=== PATIENT | female | born 1965 | race African-American/Black ===

== ENCOUNTER 2020-02-01 00:56 | Emergency (ER) | payer MEDICAID ==
[~2020-02-01] VITALS: Ht 167.6 cm; Wt 94.7 kg
--- NOTE | 2020-02-01 01:28 | NUR ---
BENITO RN: 54 Y/O FEMALE BIB [facility] FOR CHEST PAIN. PT STATES THIS STARTED YESTERDAY WHEN "I WAS HAVING AN ARGUMENT WITH MY ROOM MATE". PT STATES THE PAIN WAS LEFT SIDED, NON RADIATING AND INTERMITTENT. REPORTS "SEEING SPOTS AND FEELING DIZZY". NO SOB, NAUSEA, VOMITING. PT ALSO REPORTS "I DID METH A FEW DAYS AGO, BUT I'M DONE WITH THAT SHIT FOR GOOD". PT UNABLE TO SIT STILL, CONSTANTLY MOVING. PT BECAME UNEASY WITH THE IV, STATING "I'M SCARED OF NEEDLES, I DON'T LIKE THEM AT ALL". LABS DRAWN. PT REFUSING IV AT THIS TIME. PT MADE AWARE OF THE NEED FOR URINE SAMPLE. ALL MONITORING EQUIPMENT APPLIED. NORMAL SINUS RHYTHM ON THE MONITOR, NO ECTOPY OR ST CHANGES PRESENT. BLANKET PROVIDED. AWAITING TESTING TO BE COMPLETE. WILL CONTINUE TO MONITOR.
[2020-02-01] MEDS ORDERED: SODIUM CHLORIDE FLUSH 10ML SYR IVF ONE (01:30)
[2020-02-01 01:37] LABS: ALANINE AMINOTRANSFERASE 27 U/L (12-78); ALBUMIN 3.6 g/dL (3.4-5.0); ANION GAP 4 mmol/L (5-15); CALCIUM 8.6 mg/dL (8.5-10.1); CHLORIDE 110 mmol/L (98-107); CREATININE 0.88 mg/dL (0.55-1.02)
[2020-02-01 01:42] LABS: ALKALINE PHOSPHATASE 71 U/L (45-117); BILIRUBIN,TOTAL 0.4 mg/dL (0.2-1.0); TOTAL PROTEIN 7.2 g/dL (6.4-8.2); TROPONIN I < 0.015 ng/mL (0.000-0.045)
[2020-02-01 01:50] LABS: BASOPHILS # (AUTO) 0.03 x10^3/uL (0-0.1); BASOPHILS % (AUTO) 1 % (0-1); EOSINOPHILS % (AUTO) 1 % (1-7); LYMPHOCYTES # (AUTO) 3.11 x10^3/uL (1-3.4); LYMPHOCYTES % (AUTO) 42 % (22-44); MD NO; MEAN CORPUSCULAR HEMOGLOBIN 30.3 pg (27.0-34.8); MEAN CORPUSCULAR HGB CONC 33.8 g/dL (32.4-35.8); MEAN CORPUSCULAR VOLUME 89.5 fL (80-100); MEAN PLATELET VOLUME 7.2 fL (7.4-10.4); MONOCYTES # (AUTO) 0.41 x10^3/uL (0.2-0.8); MONOCYTES % (AUTO) 6 % (2-9); NEUTROPHILS # (AUTO) 3.71 x10^3/uL (1.8-6.8); NEUTROPHILS % (AUTO) 50 % (42-75); PLATELET COUNT 308 x10^3/uL (130-400); RED BLOOD COUNT 4.43 x10^6/uL (3.82-5.3); RED CELL DISTRIBUTION WIDTH 15.4 % (9.6-15.2)
[2020-02-01] MEDS ORDERED: KETOROLAC 30 MG/1 ML IM ONE (02:00)
[2020-02-01] MEDS ORDERED: ASPIRIN 81 MG TABLET CHEW PO ONE (02:00)
[2020-02-01] MEDS ORDERED: ASPIRIN 81 MG TABLET CHEW ONE (02:33)
[2020-02-01] MEDS ORDERED: KETOROLAC 30 MG/1 ML ONE (02:33)
--- NOTE | 2020-02-01 03:16 | NUR ---
BREAK RN: PT ADAMANTLY REFUSING TO PROVIDE UA AT THIS TIME. PA MADE AWARE.
[2020-02-01 03:36] VITALS: BP 101/72
== END 2020-02-01 03:38 | disposition home or self-care (01) ==
LOC: ED 03:27
DX: R07.89 Other chest pain (principal); M54.9 Dorsalgia, unspecified; G89.29 Other chronic pain; F17.210 Nicotine dependence, cigarettes, uncomplicated
CPT/HCPCS: 36415; 71045; 80053; 80307; 84484; 85025; 93005; 96372; 99285; J1885

== ENCOUNTER 2020-06-24 06:12 | Emergency (ER) | payer MEDICAID ==
[~2020-06-24] VITALS: Ht 167.6 cm; Wt 90.0 kg
[2020-06-24] MEDS ORDERED: MAALOX/HYOSCYAMINE/LIDOCAINE 45 ML BTL PO ONE (06:30)
[2020-06-24] MEDS ORDERED: ONDANSETRON ODT 8 MG PO ONE (06:30)
[2020-06-24] MEDS ORDERED: FAMOTIDINE 20 MG TABLET PO ONE (06:30)
--- NOTE | 2020-06-24 06:36 | NUR ---
THIS PT WAS KEVIN TORREZ FROM HOME. STATES "I CALLED BECAUSE OF MY LEG PAIN, I CAN'T WALK," PER PT THIS HAS BEEN HAPPENING FOR 5 MONTHS. PER EMS PT WALKED DOWN 3 FLIGHTS OF STAIRS TO THE AMBULANCE. PT ABLE TO BEAR WEIGHT TO GET FROM GURNEY TO BED AND FROM BED TO COMMODE FOR UA. PT ALSO COMPLAINING OF LOWER ABD PAIN. NON DESCRIPT. DENIES N/V. PT CONNECTED TO BP AND O2 MONITORS. SIDE RAILS UP X2, CALL LIGHT IN REACH.
[2020-06-24 06:37] LABS: MICROSCOPIC NOT IND
[2020-06-24 06:51] LABS: BASOPHILS # (AUTO) 0.03 x10^3/uL (0-0.1); BASOPHILS % (AUTO) 0 % (0-1); EOSINOPHILS % (AUTO) 1 % (1-7); LYMPHOCYTES # (AUTO) 2.71 x10^3/uL (1-3.4); LYMPHOCYTES % (AUTO) 34 % (22-44); MD NO; MEAN CORPUSCULAR HEMOGLOBIN 29.4 pg (27.0-34.8); MEAN CORPUSCULAR HGB CONC 32.9 g/dL (32.4-35.8); MEAN CORPUSCULAR VOLUME 89.2 fL (80-100); MEAN PLATELET VOLUME 6.6 fL (7.4-10.4); MONOCYTES # (AUTO) 0.35 x10^3/uL (0.2-0.8); MONOCYTES % (AUTO) 5 % (2-9); NEUTROPHILS # (AUTO) 4.71 x10^3/uL (1.8-6.8); NEUTROPHILS % (AUTO) 60 % (42-75); PLATELET COUNT 360 x10^3/uL (130-400); RED BLOOD COUNT 4.15 x10^6/uL (3.82-5.3); RED CELL DISTRIBUTION WIDTH 14.7 % (9.6-15.2)
[2020-06-24 07:00] LABS: ALANINE AMINOTRANSFERASE 33 U/L (12-78); ALBUMIN 4.1 g/dL (3.4-5.0); ANION GAP 7 mmol/L (5-15); CALCIUM 8.9 mg/dL (8.5-10.1); CHLORIDE 105 mmol/L (98-107)
[2020-06-24 07:05] LABS: ALKALINE PHOSPHATASE 98 U/L (45-117); BILIRUBIN,TOTAL 1.4 mg/dL (0.2-1.0); TOTAL PROTEIN 7.9 g/dL (6.4-8.2)
[2020-06-24] MEDS ORDERED: FAMOTIDINE 20 MG TABLET ONE (07:05)
[2020-06-24] MEDS ORDERED: MAALOX/HYOSCYAMINE/LIDOCAINE 45 ML BTL ONE (07:05)
[2020-06-24] MEDS ORDERED: ONDANSETRON ODT 8 MG ONE (07:05)
--- NOTE | 2020-06-24 07:17 | NUR ---
pt going for rad tests at this time.
[2020-06-24 08:08] VITALS: BP 127/78
== END 2020-06-24 08:11 | disposition home or self-care (01) ==
LOC: ED 07:32
DX: S83.91XA Sprain of unspecified site of right knee, initial encounter (principal); F10.220 Alcohol dependence with intoxication, uncomplicated; R10.84 Generalized abdominal pain; R10.11 Right upper quadrant pain; R10.13 Epigastric pain; Y90.9 Presence of alcohol in blood, level not specified; X58.XXXA Exposure to other specified factors, initial encounter; Y93.89 Activity, other specified; Y92.89 Other specified places as the place of occurrence of the external cause; Y99.8 Other external cause status
CPT/HCPCS: 36415; 73564; 76700; 80053; 80307; 81003; 83690; 84703; 85025; 99285; Q0162

== ENCOUNTER 2020-07-22 22:36 | Emergency (ER) | payer MEDICAID ==
[~2020-07-22] VITALS: Ht 165.1 cm; Wt 104.5 kg
[2020-07-22 22:47] VITALS: BP 102/67
--- NOTE | 2020-07-22 23:10 | NUR ---
PT BIB EMS. PT COMPLAINING OF DIZZY EPISODE BUT THEN STATED SHE FELT FINE AND HAS SCHIZOPHRENIA AND HAS NOT TAKEN HER MEDS IN A LONG TIME. PT IS YELLING ABOUT HER PHONE AND THAT SOME [employer]Y DELETED ALL HER PHOTOS AND CONTACTS AND TOOK HER SIM CARD. PT YELLING VERY LOUDLY BUT WHEN ASKED TO LOWER HER VOICE SHE DOES. PT CONTINUING TO ASK IF SHE IS BEING DETAINED, AND IS GETTING UPSET ABOUT NOT HAVING A PHONE LENS COATER. PT GIVEN A GLASS OF WATER, PT ABLE TO DRINK IT QUICKLY W/O S/S OF ASPIRATION. PT CURRENTLY LAYING IN BED ON MONITORS AND OCCATIONALLY YELLING
== END 2020-07-22 23:40 | disposition home or self-care (01) ==
LOC: ED 23:03
DX: R55 Syncope and collapse (principal); R42 Dizziness and giddiness
CPT/HCPCS: 82962; 99283